=== PATIENT | female | born 1990 | race Two or more races ===

== ENCOUNTER 2017-12-18 20:31 | Inpatient (IN) | payer BC ==
[2017-12-18] MEDS ORDERED: Carboprost Tromethamine 250 MCG/1 ML Amp IM PRN (20:52)
[2017-12-18] MEDS ORDERED: Sodium Chloride 0.9% 2.5 ML Syringe FLUSH PRN (20:52)
[2017-12-18] MEDS ORDERED: Butorphanol 1 MG/ML SDV IVPUSH PRN (20:52)
[2017-12-18] MEDS ORDERED: Nalbuphine 10 MG/1 ML Vial IVPUSH PRN (20:52)
[2017-12-18] MEDS ORDERED: Water For Irrigation,Sterile 1,000 ML Container IRR PRN (20:52)
[2017-12-18] MEDS ORDERED: Sodium Chloride 0.9% 10 ML Syringe FLUSH PRN (20:52)
[2017-12-18] MEDS ORDERED: Tranexamic Acid 1,000 MG in Sodium Chloride 0.9% 100 ML IV PRN (20:52)
[2017-12-18] MEDS ORDERED: Lidocaine 1% 50 ML MDV INJECT PRN (20:52)
[2017-12-18] MEDS ORDERED: Methylergonovine 0.2 MG/1 ML Amp IM PRN (20:52)
[2017-12-18] MEDS ORDERED: Misoprostol 200 MCG Tab PO PRN (20:52)
[2017-12-18] MEDS ORDERED: Oxytocin/0.9 % Sodium Chloride 30 UNIT/500 ML BAG IV SCH (21:00)
[2017-12-18] MEDS: Lactated Ringers 1,000 ML IV SCH ×2 (21:00→23:14)
--- NOTE | 2017-12-18 23:30 | PCM.PREANE ---
Preanesthetic Assessment - Anesthesia/Transfusion/Family Hx Anesthesia History: Prior Anesthesia Without Reaction Family History of Anesthesia Reaction: No Transfusion History: No Prior Transfusion(s) - Review of Systems General: No Symptoms Pulmonary: No Symptoms Cardiovascular: No Symptoms Gastrointestinal: No Symptoms Neurological: No Symptoms - Physical Assessment Height: 1.68 m Weight: 64.864 kg ASA Class: 1 Mental Status: Alert & Oriented x3 Dentition: Reports: Normal Dentition - Lab Values: Laboratory Last Values WBC 13.14 K/uL (4.0-11.0) H 12/18/17 21:08 RBC 4.44 M/uL (4.30-5.90) 12/18/17 21:08 Hgb 13.3 g/dL (12.0-16.0) 12/18/17 21:08 Hct 38.1 % (36.0-46.0) 12/18/17 21:08 MCV 85.8 fL (80.0-98.0) 12/18/17 21:08 MCH 30.0 pg (27.0-32.0) 12/18/17 21:08 MCHC 34.9 g/dL (31.0-37.0) 12/18/17 21:08 RDW Std Deviation 39.2 fl (28.0-62.0) 12/18/17 21:08 RDW Coeff of Rickey 13 % (11.0-15.0) 12/18/17 21:08 Plt Count 190 K/uL (150-400) 12/18/17 21:08 MPV 11.70 fL (7.40-12.00) 12/18/17 21:08 Nucleated RBC % 0.0 /100WBC 12/18/17 21:08 Nucleated RBCs # 0 K/uL 12/18/17 21:08 Blood Type A POSITIVE 12/18/17 22:08 Antibody Screen NEGATIVE 12/18/17 22:08 - Allergies Allergies/Adverse Reactions: Allergies Allergy/AdvReac Type Severity Reaction Status Date / Time No Known Allergies Allergy Verified 12/18/17 21:47 - Acknowledgements Anesthesia Type Planned: Epidural Pt an Appropriate Candidate for the Planned Anesthesia: Yes Alternatives and Risks of Anesthesia Discussed w Pt/Guardian: Yes Pt/Guardian Understands and Agrees with Anesthesia Plan: Yes PreAnesthesia Questionnaire HEENT History: Reports: Impaired Vision 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: - Past Surgical History HEENT Surgical History: Reports: Oral Surgery - SUBSTANCE USE Smoking Status *Q: Never Smoker Second Hand Smoke Exposure: No - CURRENT (IN HOUSE) MEDS Current Meds: Current Medications Butorphanol Tartrate (Stadol) 1 mg IVPUSH Q1H PRN PRN Reason: Pain Carboprost Tromethamine (Hemabate Ds) 250 mcg IM ASDIRECTED PRN PRN Reason: Post Hemorrhage Tranexamic Acid 1,000 mg/ (Sodium Chloride) 110 mls @ 660 mls/hr IV ONETIME PRN PRN Reason: Bleeding Lactated Ringer's (Ringers, Lactated) 1,000 mls @ 150 mls/hr IV ASDIRECTED [facility] Last Admin: 12/18/17 23:14 Dose: 999 mls/hr Oxytocin/Sodium Chloride (Oxytocin 30 Unit/500 Ml-Ns) 30 unit in 500 mls @ 999 mls/hr IV TITRATE [facility] Lidocaine HCl (Xylocaine 1%) 50 ml INJECT .ONCE PRN PRN Reason: Laceration repair Methylergonovine Maleate (Methergine) 0.2 mg IM ASDIRECTED PRN PRN Reason: Post Hemorrhage Misoprostol (Cytotec) 200 mcg PO .ONCE PRN PRN Reason: Post Hemorrhage Nalbuphine HCl (Nubain) 10 mg IVPUSH Q1H PRN PRN Reason: Pain (severe 7-10) Sodium Chloride (Saline Flush) 10 ml FLUSH ASDIRECTED PRN PRN Reason: Keep Vein Open Sodium Chloride (Saline Flush) 2.5 ml FLUSH ASDIRECTED PRN PRN Reason: Keep Vein Open Sterile Water (Sterile Water For Irrigation) 1,000 ml IRR ASDIRECTED PRN PRN Reason: delivery Discontinued Medications Fentanyl/Bupivacaine HCl (Bhsknqwn-Jeqnz-Jx 2 Mcg/Ml-0.125%) Confirm Administered Dose 100 mls @ as directed RIGOBERTO CASPER-MED ONE Stop: 12/18/17 23:11
--- NOTE | 2017-12-18 23:33 | PCM.PRNOTE ---
- Free Text/Narrative Note: Anes Note Patient requests epidural for L&D. Sitting Position. Bet prep X 3 to lumbar area. Sterile drape applied. Level L3-L4. Midline approach. Epidural space easily achieved single attempt with ease, using CESAR technique. Cath threaded 3 cm with ease. Sterile dressing applied. Test dose 3 cc 1.5% lido with epi negative. Loadin 10 cc cc pump solution slowly. Pump started at 8 cc hr, with 6 cc q 20 min prn bolus. Miles Fox B[employer]
[2017-12-19] MEDS ORDERED: Citric Acid/Sodium Citrate Solution 30 ML Cup ONE (03:34)
[2017-12-19] MEDS ORDERED: Witch Hazel Medicated Pads 40/Jar TOP PRN (05:16)
[2017-12-19] MEDS ORDERED: Benzocaine/Menthol 20%-0.5% Spray 78 GM Cannister TOP PRN (05:16)
[2017-12-19] MEDS ORDERED: Acetaminophen 500 MG Tab PO PRN ×2 (05:16)
[2017-12-19] MEDS ORDERED: Simethicone 80 MG Tab.Chew PO PRN (05:16)
[2017-12-19] MEDS ORDERED: Bisacodyl 10 MG Supp RECTAL PRN (05:16)
[2017-12-19] MEDS ORDERED: Lanolin 100% Cream 7 GM Tube TOP PRN (05:16)
[2017-12-19] MEDS ORDERED: Aluminum Hydroxide/Magnesium Hydroxide/Simethicone Susp 30 ML Cup PO PRN (05:16)
[2017-12-19] MEDS ORDERED: Ibuprofen 800 MG Tab PO PRN (05:16)
[2017-12-19] MEDS ORDERED: Docusate Sodium 100 MG Cap PO PRN (05:16)
[2017-12-19] MEDS ORDERED: Ibuprofen 400 MG Tab PO PRN (05:16)
[2017-12-19] MEDS: oxyCODONE 5 MG Tab PO PRN ×2 (05:43→22:38)
--- NOTE | 2017-12-19 05:55 | OR ---
SURGEON: Thuy Bermeo M.D. DATE OF PROCEDURE: 12/19/2017 PREOPERATIVE DIAGNOSES: 1. A 39 week intrauterine . 2. Active labor. POSTOPERATIVE DIAGNOSES: 1. A 39 week intrauterine . 2. Active labor. PROCEDURE: Spontaneous vaginal delivery, second-degree midline laceration repair. ENTRY LEVEL RECRUITER: HERNAN Sanchez. ANESTHESIA: Epidural. ESTIMATED BLOOD LOSS: 350 mL. COMPLICATIONS: None known. FINDINGS: Viable female. scored 9 at 1 minute, at 10 at 5 minute. Weight of 8 pounds 6 ounces. Spontaneous delivery, intact placenta, 3-vessel cord. DISPOSITION: Infant nursery, mom in LDRP. PROCEDURE IN DETAIL: Kaelyn is a 27-year-old, G1, P0, at 39 weeks gestation, who presents on the evening of 12/18/2017 with regular contractions since 5:00 p.m. Shortly after 9:00 p.m., she was found to be 5 cm, 80% effaced, -2 station. She was admitted. Routine labs were drawn. IV hydration was initiated. She became increasingly uncomfortable, underwent regional anesthesia from epidural, became more comfortable. heart tones remained category 1. The patient continued to make continued progression throughout the adult neurologist hours. Had spontaneous rupture of membranes with clear fluid. She is group B beta strep negative. Shortly after 3 p.m., she was found to be complete 100% effaced, +2 station, and began pushing efforts, pushed for approximately an hour and a half that time was found to be +3 station and I was called for delivery. Upon my arrival, the patient was placed in modified dorsal lithotomy position, prepped and draped in the usual aseptic manner. With continued pushing efforts, she was able to deliver the 's head atraumatically, spontaneously, followed by anterior shoulder, posterior shoulder, and the main body without difficulty. The 's oropharynx and nares bulb suctioned. Cord clamped x2 and cut. Infant was handed off to her mother, attending nursing staff at her side. Cord arterial, cord venous, cord blood samples were obtained. Light pressure was applied. The placenta was delivered spontaneously intact. Vigorous fundal uterine massage was then applied while 30 units of Pitocin was delivered in 500 mL of IV fluid. Upon inspection of cervix, vaginal sidewalls, and perineum, there was found to be a second-degree midline laceration was repaired using 3-0 Vicryl in usual fashion. There was also superficial first-degree right labial laceration reapproximated with [id number] suture. Uterus remained firm. Sponge and needle count was correct. The patient remained in LDRP, in nursery. ADELINA / KAY /[id number]
--- NOTE | 2017-12-20 08:44 | PCM.PNPP ---
- General Info Date of Service: 12/20/17 Admission Dx/Problem (Free Text): 27yo s/p , complains of cracked nipples , wants help with lactating , Normal lochia Subjective Update: Complains of cracked left nipple , normal lochia Functional Status: Reports: Pain Controlled, Tolerating Diet, Ambulating, Urinating - Review of Systems General: Reports: No Symptoms HEENT: Reports: No Symptoms Pulmonary: Reports: No Symptoms Cardiovascular: Reports: No Symptoms Gastrointestinal: Reports: No Symptoms Genitourinary: Reports: No Symptoms Musculoskeletal: Reports: No Symptoms Skin: Reports: No Symptoms Neurological: Reports: No Symptoms Psychiatric: Reports: No Symptoms - General Info Date of Service: 12/20/17 - Patient Data Vital Signs - Most Recent: Last Vital Signs Temp 36.4 C 12/20/17 08:00 Pulse 72 12/20/17 08:00 Resp 15 12/20/17 08:00 BP 122/66 12/20/17 08:00 Pulse Ox 96 12/20/17 08:00 Weight - Most Recent: 64.864 kg Lab Results - Last 24 Hours: Laboratory Results - last 24 hr 12/19/17 Range/Units 14:51 Hgb 11.9 L (12.0-16.0) g/dL Hct 34.7 L (36.0-46.0) % Med Orders - Current: Current Medications Acetaminophen (Tylenol Extra Strength) 500 mg PO Q4H PRN PRN Reason: Pain Last Admin: 12/19/17 22:37 Dose: 500 mg Acetaminophen (Tylenol Extra Strength) 1,000 mg PO Q4H PRN PRN Reason: Pain Last Admin: 12/19/17 05:42 Dose: 1,000 mg Al Hydroxide/Mg Hydroxide (Mag-Al Plus) 30 ml PO Q8H PRN PRN Reason: Heartburn Benzocaine/Menthol (Dermoplast Pain Relief 20%-0.5% [place]) 78 gm TOP ASDIRECTED PRN PRN Reason: Perineal Comfort Measure Last Admin: 12/19/17 05:43 Dose: 1 spray Bisacodyl (Dulcolax) 10 mg RECTAL .ONCE PRN PRN Reason: Constipation Carboprost Tromethamine (Hemabate Ds) 250 mcg IM ASDIRECTED PRN PRN Reason: Post Hemorrhage Docusate Sodium (Colace) 100 mg PO BID PRN PRN Reason: Constipation Last Admin: 12/19/17 22:37 Dose: 100 mg Emollient Ointment (Lansinoh Hpa) 0 gm TOP ASDIRECTED PRN PRN Reason: Sore Nipples Last Admin: 12/19/17 05:42 Dose: 1 applic Tranexamic Acid 1,000 mg/ (Sodium Chloride) 110 mls @ 660 mls/hr IV ONETIME PRN PRN Reason: Bleeding Lactated Ringer's (Ringers, Lactated) 1,000 mls @ 150 mls/hr IV ASDIRECTED [facility] Last Admin: 12/18/17 23:14 Dose: 999 mls/hr Oxytocin/Sodium Chloride (Oxytocin 30 Unit/500 Ml-Ns) 30 unit in 500 mls @ 999 mls/hr IV TITRATE [facility] Last Admin: 12/19/17 05:46 Dose: 999 mls/hr Ibuprofen (Motrin) 400 mg PO Q4H PRN PRN Reason: Pain Ibuprofen (Motrin) 800 mg PO Q6H PRN PRN Reason: Pain Last Admin: 12/19/17 17:13 Dose: 800 mg Lidocaine HCl (Xylocaine 1%) 50 ml INJECT .ONCE PRN PRN Reason: Laceration repair Methylergonovine Maleate (Methergine) 0.2 mg IM ASDIRECTED PRN PRN Reason: Post Hemorrhage Misoprostol (Cytotec) 200 mcg PO .ONCE PRN PRN Reason: Post Hemorrhage Oxycodone HCl (Oxycodone) 5 mg PO Q2H PRN PRN Reason: Pain Last Admin: 12/19/17 22:38 Dose: 5 mg Simethicone (Simethicone) 80 mg PO Q4H PRN PRN Reason: Gas Sodium Chloride (Saline Flush) 10 ml FLUSH ASDIRECTED PRN PRN Reason: Keep Vein Open Sodium Chloride (Saline Flush) 2.5 ml FLUSH ASDIRECTED PRN PRN Reason: Keep Vein Open Witch Donna (Tucks) 1 pad TOP ASDIRECTED PRN PRN Reason: comfort care Last Admin: 12/19/17 05:43 Dose: 1 pad Discontinued Medications Butorphanol Tartrate (Stadol) 1 mg IVPUSH Q1H PRN PRN Reason: Pain Citric Acid/Sodium Citrate (Bicitra Solution) Confirm Administered Dose 30 ml .ROUTE .STK-MED ONE Stop: 12/19/17 03:35 Last Admin: 12/19/17 03:38 Dose: 30 ml Fentanyl/Bupivacaine HCl (Lvmykadk-Enaxo-Ho 2 Mcg/Ml-0.125%) Confirm Administered Dose 100 mls @ as directed EP .STK-MED ONE Stop: 12/18/17 23:11 Last Admin: 12/19/17 11:12 Dose: Not Given Nalbuphine HCl (Nubain) 10 mg IVPUSH Q1H PRN PRN Reason: Pain (severe 7-10) Sterile Water (Sterile Water For Irrigation) 1,000 ml IRR ASDIRECTED PRN PRN Reason: delivery Last Admin: 12/19/17 04:39 Dose: 1,000 ml - Interaction Infant Disposition, : [place] in Room with Family Infant Interaction: Holding Infant Support Person: Significant Other - Recovery Exam Fundal Tone: Firm Fundal Level: 2 Fingerbreadths Below Umbilicus Fundal Placement: Midline Lochia Amount: Scant Lochia Color: Rubra/Red Perineum Description: Edematous, Other (see below) Other Perinuem Description: 2nd degree laceration Episiotomy/Laceration: Approximated Bladder Status: Voiding Urinary Elimination: Voided - Exam General: Alert, Oriented HEENT: Pupils Equal Neck: Supple Lungs: Clear to Auscultation Cardiovascular: Regular Rate, Regular Rhythm GI/Abdominal Exam: Normal Bowel Sounds Extremities: Normal Inspection Skin: Warm Wound/Incisions: Healing Well Neurological: No New Focal Deficit Psy/Mental Status: Alert - Problem List & Annotations (1) Vaginal delivery SNOMED Code(s): 043619332 Code(s): O80 - ENCOUNTER FOR FULL-TERM UNCOMPLICATED DELIVERY Status: Acute Current Visit: Yes - Problem List Review Problem List Initiated/Reviewed/Updated: Yes - Assessment Assessment:: 27 yo P1 s/p , PPD1 , has some issues with , otherwise stable , Normal lochia - Plan Plan:: Will consult health information specialist Discharge home today after consult Pain control as needed
== END 2017-12-20 13:30 | disposition home or self-care (01) | DRG 560 ==
LOC: MW.OBCHECK 20:31 → MW.OB 20:35 → MW.OBCHECK 20:52 → OBSVTOIN 12-19 04:50 → MW.OB 12-19 10:13
PROVIDERS: ADMIT Obstetrics & Gynecology; ATTEND Obstetrics & Gynecology
PROC: 10E0XZZ Delivery of Products of Conception, External Approach (ICD-10-PCS; principal; 2017-12-19)
PROC: 0KQM0ZZ Repair Perineum Muscle, Open Approach (ICD-10-PCS; 2017-12-19)
DX: O70.1 Second degree perineal laceration during delivery (principal); Z3A.39 39 weeks gestation of pregnancy; Z37.0 Single live birth
CPT/HCPCS: 36415; 59025; 59409; 85014; 85018; 85027; 86850; 86900; 86901; A9270-GY; J2590; J7120

== ENCOUNTER 2022-11-11 01:12 | Inpatient (IN) | payer OTHER ==
[2022-11-11] MEDS ORDERED: Methylergonovine 0.2 MG/1 ML Amp IM PRN (01:38)
[2022-11-11] MEDS ORDERED: Sodium Chloride 0.9% 2.5 ML Syringe FLUSH PRN (01:38)
[2022-11-11] MEDS ORDERED: Tranexamic Acid 1,000 MG in Sodium Chloride 0.9% 100 ML IV PRN (01:38)
[2022-11-11] MEDS ORDERED: Sodium Chloride 0.9% 20 ML SDV IV PRN (01:38)
[2022-11-11] MEDS ORDERED: Ampicillin 2 GM in Sodium Chloride 0.9% 100 ML IV ONE (01:38)
[2022-11-11] MEDS ORDERED: Lidocaine 1% 50 ML MDV INJECT PRN (01:38)
[2022-11-11] MEDS ORDERED: Water For Irrigation,Sterile 1,000 ML Container IRR PRN (01:38)
[2022-11-11] MEDS ORDERED: Carboprost Tromethamine 250 MCG/1 ML Amp IM PRN (01:38)
[2022-11-11] MEDS ORDERED: Misoprostol 200 MCG Tab PO PRN (01:38)
[2022-11-11] MEDS ORDERED: Butorphanol 1 MG/ML SDV IVPUSH PRN (01:38)
[2022-11-11] MEDS ORDERED: Sodium Chloride 0.9% 10 ML Syringe FLUSH PRN (01:38)
[2022-11-11] MEDS ORDERED: Lactated Ringers 1,000 ML IV SCH (01:45)
[2022-11-11] MEDS ORDERED: Oxytocin/0.9 % Sodium Chloride 30 UNIT/500 ML BAG IV SCH (01:45)
[2022-11-11] MEDS ORDERED: Calcium Carbonate 500 MG Tab.Chew PO PRN (01:50)
[2022-11-11] MEDS ORDERED: Bupivacaine 0.5% 10 ML SDV ONE (01:56)
[2022-11-11] MEDS ORDERED: Ropivacaine/PF 400 MG/200 ML PCA ONE (01:56)
[2022-11-11] MEDS ORDERED: ePHEDrine 50 MG/ML SDV IVPUSH PRN ×2 (02:19)
[2022-11-11] MEDS ORDERED: Phenylephrine HCl 0.5 MG/5 ML AMP IVPUSH PRN (02:19)
[2022-11-11] MEDS ORDERED: Ropivacaine HCl/PF 400 MG in Premix Bag 1 BAG EPIDUR SCH (02:30)
[2022-11-11] MEDS ORDERED: Ibuprofen 800 MG Tab PO PRN (04:41)
[2022-11-11] MEDS ORDERED: Acetaminophen 500 MG Tab PO PRN ×2 (04:41)
[2022-11-11] MEDS ORDERED: Bisacodyl 10 MG Supp RECTAL PRN (04:41)
[2022-11-11] MEDS ORDERED: Ibuprofen 400 MG Tab PO PRN (04:41)
[2022-11-11] MEDS ORDERED: Witch Hazel Medicated Pads 40/Jar TOP PRN (04:41)
[2022-11-11] MEDS ORDERED: Lanolin 100% Cream 7 GM Tube TOP PRN (04:41)
[2022-11-11] MEDS ORDERED: Docusate Sodium 100 MG Cap PO PRN (04:41)
[2022-11-11] MEDS ORDERED: Benzocaine/Menthol 20%-0.5% Spray 78 GM Cannister TOP PRN (04:41)
[2022-11-11] MEDS ORDERED: Ampicillin 1 GM in Sodium Chloride 0.9% 50 ML IV SCH (06:00)
== END 2022-11-13 12:25 | disposition home or self-care (01) | DRG 807 ==
LOC: MW.OBCHECK 01:12 → MW.OB 01:12 → MW.OBCHECK 01:38 → MW.OB 01:38 → OBSVTOIN 04:20 → MW.OB 09:58
PROVIDERS: ADMIT Obstetrics & Gynecology Obstetrics; ATTEND Obstetrics & Gynecology
PROC: 10E0XZZ Delivery of Products of Conception, External Approach (ICD-10-PCS; principal; 2022-11-11)
PROC: 3E0R3BZ Introduction of Anesthetic Agent into Spinal Canal, Percutaneous Approach (ICD-10-PCS; 2022-11-11)
PROC: 00HU03Z Insertion of Infusion Device into Spinal Canal, Open Approach (ICD-10-PCS; 2022-11-11)
DX: O80 Encounter for full-term uncomplicated delivery (principal); Z37.0 Single live birth; Z3A.38 38 weeks gestation of pregnancy
CPT/HCPCS: 01967; 36415; 51702; 59025; 59409; 85014; 85018; 85027; 86592; 86850; 86900; 86901; A9270-GY; J0290; J2590; J2795; J3490; J7050; J7120